=== PATIENT | male | born 1995 | race Caucasian/White ===

== ENCOUNTER → 2017-03-06 | Outpatient (CLI) | payer BC, MEDICAID ==
[~2017-03-06] MED LIST: CEPH500C24 PO; POLY17PO25 PO
== END ==
LOC: LAB 16:41
PROVIDERS: ATTEND Nurse Practitioner Primary Care
DX: M79.89 Other specified soft tissue disorders (principal)
CPT/HCPCS: 36415; 85379

== ENCOUNTER → 2017-03-13 | Outpatient (CLI) | payer BC, MEDICAID ==
--- NOTE | 2017-03-13 17:43 | RADIOLOGY IMAGING REPORT ---
FACILITY: [facility] - [place] PATIENT NAME: Allan Gonzalez : 1995 MR: [id number] V: [id number] EXAM DATE: ORDERING PHYSICIAN: BLAIR ESCOBAR TECHNOLOGIST: Location: [facility] - [place] Patient: Allan Gonzalez : 1995 Visit/Account:[id number] Date of Sevice: 03/13/2017 FOOT 3 VIEW LEFT Indication: Foot pain. Swelling. Comparison: None Available Findings: 3 views left foot are obtained. No acute fracture is seen. 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 There is solid bridging bone between the bases of the third and fourth metatarsals and likely the fifth metatarsal as well. There is solid-appearing fusion of the m idfoot joints as well as the subtalar joints. Correlate clinically. There is diffuse osteopenia. Ther e is a component of valgus angulation at the interphalangeal joint of the great toe. IMPRESSION: 1. 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 Correlate with history. 2. No acute fracture deformity identified. Report Dictated By: Yon Ventura at 03/13/2017 5:34 PM Report E-Signed By: Yon Ventura at 03/13/2017 5:39 PM WSN:[id number]
== END ==
LOC: RAD 10:59
PROVIDERS: ATTEND Nurse Practitioner Primary Care
DX: M89.8X7 Other specified disorders of bone, ankle and foot (principal)

== ENCOUNTER → 2017-05-22 | Outpatient (CLI) | payer BC, MEDICAID | LOC: LAB 15:47 | PROVIDERS: ATTEND Nurse Practitioner Family | DX: B35.1 Tinea unguium (principal) | CPT/HCPCS: 87220 ==

== ENCOUNTER 2018-01-16 23:17 | Emergency (ER) | payer BC, MEDICAID ==
--- NOTE | 2018-01-16 23:40 | ER Report ---
History and Physical Time Seen By : 23:39 Hx. of Stated Complaint: COUGH SINCE SUNDAY. LAST NIGHT STARTED HAVING A FEVER, TODAY HE HAS BEEN COUGHING UP A LOT OF MUCOUS, AND FELT NAUSEOUS HPI/ROS CHIEF COMPLAINT: cough HISTORY OF PRESENT ILLNESS: This is a 22 year old male. He has been coughing for about 5 days now. He has had subjective fevers off and on for several days. Having nausea the last few days. Coughing up a lot of mucous, but was feeling a little better today until the vomiting started. He has chronic bowel problems and needed to use some laxative through his abdominal tube into his colon, but feels this is unrelated based on his years of dealing with this. No current abdominal pain. No chest pain. Allergies: Coded Allergies: ibuprofen (Verified Allergy, Severe, Chest tightness, throat itchy, 03/06/17) peanut (Verified Allergy, Severe, Chest tightness, itchy throat, 03/06/17) Has epi-pen lavender (Lavandula angustifolia) (Verified Allergy, Intermediate, Itchy skin, 03/06/17) Sulfa (Sulfonamide Antibiotics) (Verified Allergy, Unknown, 01/16/18) REACTION A CHILD. UNKOWN Home Meds Active Scripts Guaifenesin/Codeine (GUAIFENESIN-CODEINE SYRUP) 5 Ml Syrp, 5 ML PO Q6H PRN for COUGH, #120 ML 0 Refills Prov:PAZ CASTAÑEDA MD 01/17/18 Ondansetron 4 Mg Odt (ONDANSETRON 4 MG ODT) 4 Mg Tab.rapdis, 4 MG PO Q6H PRN for NAUSEA/VOMITING, #20 TAB 0 Refills Prov:PAZ CASTAÑEDA MD 01/17/18 Reported Medications Polyethylene Glycol 3350 (MIRALAX) Unknown Strength Powd.pack, PO, PKT 03/06/17 Reviewed Nurses Notes: Yes Smoking Status: Never Smoker Constitutional Vital Sign - Last 24 Hours 01/16/18 01/16/18 01/16/18 01/16/18 23:17 23:22 23:24 23:30 Temp 98.3 Pulse ??? 80 Resp 16 B/P (MAP) 111/66 111/66 (81) 119/82 (94) Pulse Ox 93 O2 Delivery Room Air 1201/17/18 01/17/18 01/17/18 23:47 00:00 00:29 01:00 Pulse 106 B/P (MAP) 113/58 (76) 108/65 (79) 98/75 (83) Pulse Ox 94 Physical Exam General Appearance: The patient is alert. No acute distress. Eyes: Pupils are equal, round. No pallor, injection or icterus. ENT: Mucous membranes are moist. Normal oral mucosa. Posterior oropharynx with some post nasal drainage and erythema, but no exudates or hypertrophy noted. Normal nasal mucosa. Normal tympanic membranes and canals. Neck: Supple and non tender. No lymphadenopathy. Respiratory: Lungs with rhonchi, no wheezing or rales. There are no retractions or accessory muscle use. Cardiovascular: Regular rate and rhythm. No murmurs, gallops or rubs. Gastrointestinal: Abdomen is soft and non tender. Nondistended. Normal active bowel sounds. Neurological: Alert and oriented x3. Skin: Warm and dry. DIFFERENTIAL DIAGNOSIS: After history and physical exam, differential diagnosis was considered for cough with fever, likely viral, will check influenza and for pneumonia as well. Medical Decision Making Data Points Laboratory Hematology Test 01/17/18 00:00 Influenza Virus Type A (PCR) Negative (NEGATIVE) Influenza Virus Type B (PCR) Negative (NEGATIVE) Chemistry Test 01/17/18 00:00 Influenza Virus Type A (PCR) Negative (NEGATIVE) Influenza Virus Type B (PCR) Negative (NEGATIVE) EKG/Imaging Imaging TWO VIEW CHEST 01/17/2018 12:00 AM. INDICATION: cough, fever COMPARISON: None. FINDINGS: Lungs are well-expanded. The lungs are clear. No pneumothorax or pleural effusion. Pulmonary vasculature is unremarkable. Heart size is normal. IMPRESSION: No acute cardiopulmonary abnormality. Report Dictated By: Ramez Raymond MD at 01/17/2018 12:50 AM ED Course/Re-evaluation ED Course Negative influenza, and chest x-ray. See instructions below. Decision to Disposition Date: Jan 17, 2018 Decision to Disposition Time: 01:22 Depart Departure Latest Vital Signs Vital Signs Date Time Temp Pulse Resp B/P (MAP) Pulse Ox O2 Delivery O2 Flow Rate FiO2 01/17/18 01:00 98/75 (83) 01/16/18 23:47 106 94 01/16/18 23:22 98.3 16 Room Air Impression: Primary Impression: Upper respiratory infection Condition: Improved Disposition: HOME OR SELF-CARE Referrals: VINNY BETANCOURT APRN [employer] (PCP) New Scripts Guaifenesin/Codeine (GUAIFENESIN-CODEINE SYRUP) 5 Ml Syrp 5 ML PO Q6H PRN for COUGH, #120 ML 0 Refills Prov: PAZ CASTAÑEDA MD 01/17/18 Ondansetron 4 Mg Odt (ONDANSETRON 4 MG ODT) 4 Mg Tab.rapdis 4 MG PO Q6H PRN for NAUSEA/VOMITING, #20 TAB 0 Refills Prov: PAZ CASTAÑEDA MD 01/17/18 Patient Instructions: Upper Respiratory Infection (ED) Additional Instructions: Rest and increase fluid intake. Take Guaifenesin with Codeine, 1 teaspoon every 4 hours as needed for cough, when you want to rest. You can keep using Mucinex during the daytime. Zofran 4mg, one every 4 hours as needed for nausea or vomiting. Problem Qualifiers Primary Impression: Upper respiratory infection URI type: unspecified viral URI Qualified Codes: J06.9 - Acute upper respiratory infection, unspecified PAZ CASTAÑEDA MD Jan 16, 2018 23:40
--- NOTE | 2018-01-17 00:56 | RADIOLOGY IMAGING REPORT ---
FACILITY: [facility] PATIENT NAME: Allan Gonzalez : 1995 MR: [id number] V: [id number] EXAM DATE: ORDERING PHYSICIAN: PAZ CASTAÑEDA TECHNOLOGIST: Location: [facility] - [place] Patient: Allan Gonzalez : 1995 Visit/Account:[id number] Date of Sevice: 01/17/2018 TWO VIEW CHEST 01/17/2018 12:00 AM. INDICATION: cough, fever COMPARISON: None. FINDINGS: Lungs are well-expanded. The lungs are clear. No pneumothorax or pleural effusion. Pulmo nary vasculature is unremarkable. Heart size is normal. IMPRESSION: No acute cardiopulmonary abnormality. Report Dictated By: Ramez Raymond MD at 01/17/2018 12:50 AM Report E-Signed By: Ramez Raymond MD at 01/17/2018 12:52 AM WSN:[id number]
[2018-01-17 01:00] VITALS: BP 98/75
[2018-01-17] MEDS ORDERED: ROBC PO (01:23)
[2018-01-17] MEDS ORDERED: ONDA4TAB9 PO (01:23)
[2018-01-17] MEDS ORDERED: ONDANSETRON 4 MG ODT TH SL ONE (01:25)
[2018-01-17] MEDS ORDERED: guaiFENesin/CODEINE 5 ML UDBTL PO ONE (01:25)
== END 2018-01-17 01:40 | disposition home or self-care (01) ==
LOC: ER 01-17 00:18
DX: J06.9 Acute upper respiratory infection, unspecified (principal)
CPT/HCPCS: 71046; 87502; 99283; S0119